=== PATIENT | male | born 1975 | race Caucasian/White ===

== ENCOUNTER 2018-06-24 08:50 | Day surgery (SDC) | payer MEDICAID ==
--- NOTE | 2018-06-24 06:34 | History and Physical - [place] ---
CHIEF COMPLAINT/HISTORY OF CHIEF COMPLAINT: This patient presents with a history of an intractable lumbar radiculopathy. Due to the failure of all therapy, a spinal cord stimulator trial was conducted on 05/25/18 with 75-85% pain control. Due to the failure of therapy and the success of the trial, the patient presents today for implantation of a permanent system. PAST MEDICAL HISTORY: Noncontributory. PAST SURGICAL HISTORY: Upper extremity surgery, knee surgery, tonsils and adenoids. MEDICATIONS ON ADMISSION: List to be provided. FAMILY/PSYCHOSOCIAL HISTORY: Social history - Smoking and caffeine. Family history - Noncontributory.; SYSTEMS REVIEW: The patient seems appropriate in no acute distress. The remainder of the systems review is positive for headaches, glasses, and bipolar disease. PHYSICAL EXAMINATION: Height is 6', weight is 170. No vital signs. HEENT: Within normal limits. LUNGS: Clear. HEART: Rapid and regular. ABDOMEN: Nontender. MUSCULOSKELETAL: Examination of the musculoskeletal system shows diffuse tenderness throughout the lumbar spine. Range of motion does produce pain into both lower extremities. There currently is no motor or sensory abnormalities in the lower extremities. Ambulation - No assistive device utilized. NEUROLOGIC: Cranial nerves are intact. IMPRESSION: LUMBAR RADICULOPATHY, ICD-10 CODE M54.16 AND M54.17. PLAN: The patient is here for a spinal cord stimulator implant after a successful trial and the failure of all other therapies. The procedure, side effects and complications have all been reviewed and discussed. The procedure will be considered outpatient although an overnight stay will be evaluated. JOB NUMBER: [id number] [facility]
[~2018-06-24 08:50] MED LIST: ACETAMINOPHEN 1,000 MG/100 ML BTL IV ONE; CLINDAMYCIN 600MG/50ML PREMIX 600 MG/50 ML BAG IVPB ONE; FAMOTIDINE 20MG TABLET PO ONE; MECLIZINE 25 MG TABLET PO ONE; METOCLOPRAMIDE 10 MG TABLET PO ONE
[2018-06-24] MEDS ORDERED: PROPOFOL 10 MG/ML VIAL IV ONE (08:51)
[2018-06-24] MEDS ORDERED: FLUMAZENIL 1MG/10ML VIAL IV ONE (08:51)
[2018-06-24] MEDS ORDERED: FENTANYL PF 100MCG/2ML VIAL IV ONE (08:51)
[2018-06-24] MEDS ORDERED: LIDOCAINE 2% MDV (20MG/ML) 20ML VIAL IV ONE (08:51)
[2018-06-24] MEDS ORDERED: HYDROCODONE/APAP 7.5/325MG TABLET PO ONE ×2 (08:51→12:13)
[2018-06-24] MEDS ORDERED: Clindamycin 600mg vial 150 MG/ML VIAL IVPB ONE (08:51)
[2018-06-24] MEDS ORDERED: MIDAZOLAM HCL 2MG/2ML VIAL IV ONE (08:51)
[2018-06-24] MEDS ORDERED: LIDOCAINE 1% W/EPI 1:200,000 MPF 30ML SQ ONE ×2 (10:36)
[2018-06-24] MEDS ORDERED: BUPIVACAINE 0.5% W/EPI MPF 30 ML VIAL SQ ONE ×2 (10:36)
[2018-06-24] MEDS ORDERED: RINGERS SOLUTION,LACTATED 1,000 ML IV ONE (12:22)
--- NOTE | 2018-06-24 21:36 | Operative Note ---
DATE OF SURGERY: 06/24/2018 PREOPERATIVE DIAGNOSIS: LUMBAR RADICULOPATHY, ICD-10 CODE = M54.16 AND M54.17. POSTOPERATIVE DIAGNOSIS: LUMBAR RADICULOPATHY, ICD-10 CODE = M54.16 AND M54.17. SURGERY: 1. FLUOROSCOPIC-GUIDED EPIDURAL ACCESS LEFT T11-12, PLACEMENT OF SPINAL CORD STIMULATOR LEAD 1, A [employer] INFINION 16 WITH 6 ELECTRODES POSITIONED LEFT AT T7. 2. FLUOROSCOPIC-GUIDED EPIDURAL ACCESS LEFT T12-L1, PLACEMENT OF SPINAL CORD STIMULATOR LEAD 2, A [employer] INFINION 16 WITH 6 ELECTRODES POSITIONED RIGHT AT T7. 3. COMPLEX PROGRAMMING LEAD 1 OVER 20 MINUTES. COMPLEX PROGRAMMING LEAD 2 OVER 20 MINUTES. 4. INCISION, SUBCUTANEOUS DISSECTION, AND ANCHORING OF LEAD 1 AND LEAD 2 TO SUPRASPINOUS FASCIA WITH A [employer] LOCKING ANCHOR AND NONABSORBABLE SUTURE. 5. INCISION, SUBCUTANEOUS DISSECTION, AND CREATION OF SUBCUTANEOUS POUCH LEFT FLANK, A SITE PICKED BY THE PATIENT FOR THE GENERATOR, A [employer] SCIENTIFIC PROGRAMMABLE, RECHARGEABLE WAVEWRITER. 6. TUNNELING BETWEEN LEAD POUCH, PLACEMENT OF EACH LEAD INTO GENERATOR POUCH, EACH LEAD INTERFACED WITH THE GENERATOR. 7. PLACEMENT OF LEADS INTO POUCH. PLACEMENT OF GENERATOR INTO POUCH. CLOSURE OF BOTH INCISIONS USING STRATAFIX SUTURE, #2-0 FASCIA AND #3-0 SKIN. A DERMABOND CLOSURE. 8. COMPLEX RECOVERY ROOM PROGRAMMING INTERNAL GENERATOR HOME USE, TWO STIMULATORS, 20 MINUTES. SURGEON: TAMERA ROLDAN D.O. PRIMARY CARE PHYSICIAN: DR. SPENSER CONWAY ANESTHESIA: LOCAL SEDATION. ANESTHESIA PROVIDER: ADRIANA BENTON CRNA INDICATIONS: This patient presents with a history of an intractable lumbar radiculopathy. Due to the failure of all therapy and the success of a trial, the patient is here for implantation. SURGERY: Intravenous line, vital sign monitoring, IV sedation. prepped and draped sterile technique. Patient positioned prone. Sterile prep. Sterile technique. The epidural interspace at T11-12 and 12-1 both were marked on the left. Skin infiltrated. Using two standard Epimed curved access needles with [id number], the space was accessed. At 11-12, spinal cord stimulator lead 1, a [employer] Infinion 16 with 6 electrodes was positioned left of midline at T7. With the epidural access on the right, spinal cord stimulator lead 2, a [employer] Infinion 16 with 6 electrodes was positioned right at T7. The access was atraumatic. No blood, no CSF. With the leads navigated to T7, complex programming of lead 1 over 20 minutes followed by complex programming of lead 2 over 20 minutes performed establishing stimulation and pain control to all the appropriate areas. He was given the option to implant the system, continue to program, or remove. He opted to implant. Questions were repeated with the same response. e was re-sedated. The skin above and below incisions was then infiltrated with local, incision made, and subcutaneous dissection was conducted to the supraspinous fascia. The needles were removed and then each lead was anchored to the supraspinous fascia with a [employer] locking anchor. At the left flank, a site picked by the patient for the generator, a [employer] programmable, rechargeable, an incision made and subcutaneous dissection was used to form a pouch of suitable size and depth. Antibiotic irrigation and Bovie for hemostasis at both sites. A tunneling tool was used to carry the leads into the generator pouch and then each lead was interfaced with the generator. The generator was placed into the pouch, the leads were placed into their pouch and then both incisions were closed using STRATAFIX suture, #2-0 fascia and #3-0 skin. A Dermabond closure was then used to approximate the edges of both wounds. He was transported to the Recovery Room stable. No side effects from the procedure or the sedation. When fully awake and alert, complex programming was then performed to the generator over 20 minutes, reestablishing stimulation and pain control to all the appropriate areas. He was then instructed on the use of the system, as was his . He was then prepared for discharge by his request. DISCHARGE INSTRUCTIONS: 1. The sites will remain clean and dry. No showering or bathing in any way that would disrupt dressings. It it happens, contact the Clinic. 2. Standard medications resumed including the antibiotic, Levaquin. He will take 500 mg once a day for 14 days. 3. The office will contact the patient in 12 to 24 hours to set up a time in 7 to 10 days to evaluate the sites. Until then, he is to keep his activities low. Limit bend, lift, push, pull. All other instructions provided, numbers to contact if problems given. He will be evaluated in 7 to 10 days. cc: Dr. Spesner Conway JOB NUMBER: [id number] [facility]
--- NOTE | 2018-06-26 07:56 | RADIOLOGY REPORT ---
EXAM: THORACOLUMBAR SPINE, SINGLE VIEW HISTORY: SPINAL STIMULATOR DEVICE PLACEMENT. TECHNIQUE: A single portable AP view of the thoracolumbar spine was performed. Comparison: None. FINDINGS: An electrical stimulator device is in place projecting over the left lower quadrant. The leads extend into the thoracic region to the T7 level. No complicating features are identified. IMPRESSION: SPINAL STIMULATOR LEADS IN PLACE EXTENDING TO THE T7 LEVEL. JOB NUMBER: [id number] [facility]
== END 2018-06-24 12:23 | disposition home or self-care (01) ==
LOC: SUR 08:50
PROVIDERS: ATTEND Pain Medicine Interventional Pain Medicine
DX: M54.16 Radiculopathy, lumbar region (principal); M54.17 Radiculopathy, lumbosacral region; F31.9 Bipolar disorder, unspecified; K21.9 Gastro-esophageal reflux disease without esophagitis; F10.21 Alcohol dependence, in remission; F17.220 Nicotine dependence, chewing tobacco, uncomplicated
CPT/HCPCS: 63650; 63685; 01936; 95972; 72020; J3010; C1820; C1883; J7120